=== PATIENT | male | born 1940 | race Caucasian/White ===

== ENCOUNTER 2018-07-19 06:06 | Day surgery (SDC) | payer MEDICARE, OTHER ==
[~2018-07-19] VITALS: Ht 172.7 cm; Wt 97.5 kg
[~2018-07-19 06:06] MED LIST: ASPI81CH; Aspir 8181 MG PO; CALCIT950; CALCITRATE200 MG PO; CALCIUM + D3 E1 EACH PO; CENTRUM COMPLE1 EACH; CINNAMON PLUS1 EACH PO; Cinnamon500 MG; D3 + K2 Dots 11 EACH; FISH OIL 1,2001 EACH PO; FISH1000; LISI20; LISI20 PO; MULTI VITAMIN1 EACH PO; SIMV10; Simvastatin20 MG PO; TAMS.4ER; TAMS.4ER PO; VITAMIN D-32000 UNIT PO
[2018-07-19] MEDS ORDERED: MIRALAX17 GM PO (07:17)
[2018-07-19] MEDS ORDERED: STOOL SOFTENER100 MG PO (07:17)
--- NOTE | 2018-07-19 10:17 | NUR ---
07/19/18 Precious7 Edenilson Bloom LATE ENTRY NARRATIVE PATIENT INTO SDU RECLINER RESTING COMFORTABLY, SPOUSE IS CHAIRSIDE, PATIENT VSS, TOLERATING PO FLUIDS. PATIENT DENIES ANY PAIN OR N/V AT THIS TIME. DISCHARGE INSTRUCTIONS INCLUDING POLAR CARE REVIEWED WITH PATIENT AND SPOUSE, BOTH DENY HAVING QUESTIONS AT THIS TIME. PATIENT STATES "HE DOESN'T LIKE PAIN MEDICATION AND PROBABLY WON'T TAKE IT". WHEN ASKED ASKED ABOUT HIS PAIN THE PATIENT REPORTS 0/10 PAIN AT THIS TIME. NURSE ASSISTED PATIENT VIA WC TO HIS RIDE HOME.
== END 2018-07-19 09:50 | disposition home or self-care (01) ==
LOC: ORSCSDS 06:06
PROVIDERS: Orthopaedic Surgery
PROC: 0SBC4ZZ Excision of Right Knee Joint, Percutaneous Endoscopic Approach (ICD-10-PCS; principal; 2018-07-19 07:30)
DX: S83.241A Other tear of medial meniscus, current injury, right knee, initial encounter (principal); S83.281A Other tear of lateral meniscus, current injury, right knee, initial encounter; M17.11 Unilateral primary osteoarthritis, right knee; I10 Essential (primary) hypertension; R73.03 Prediabetes; Z79.82 Long term (current) use of aspirin; Z79.899 Other long term (current) drug therapy
CPT/HCPCS: J0690; J1100; J2250; J2405; J3010; J7120

== ENCOUNTER 2018-10-19 06:04 | Day surgery (SDC) | payer MEDICARE, OTHER ==
[~2018-10-19] VITALS: Ht 172.7 cm; Wt 94.0 kg
[~2018-10-19 06:04] MED LIST changes: +FURO40 PO; +MIRALAX17 GM PO; +STOOL SOFTENER100 MG PO
--- NOTE | 2018-10-19 10:49 | NUR ---
AIR REMOVED FROM TR BAND PER PROCEDURE. PT TOLERATED WELL. NO BLEEDING NOTED. PT AMBULATED IN RECOVERY ROOM WITHOUT DIFFICULTY. STEADY ON FEET. DRESSED SELF WITH ASSISTANCE OF . IV D/C TIP INTACT AND TR BAND REMOVED. ACCESS SITE DRESSED WITH DOT DRESSING AND WHITE ARM BOARD REAPPLIED. CMS WNL TO HAND AFTER ALL INTERVENTIONS. NO BLEEDING OR SWELLING NOTED. PT DISCHARGED HOME AMBULATORY WITH TO DRIVE HIM.
== END 2018-10-19 10:50 | disposition home or self-care (01) ==
LOC: MHTC 06:04
DX: I25.10 Atherosclerotic heart disease of native coronary artery without angina pectoris (principal); I35.0 Nonrheumatic aortic (valve) stenosis; R00.1 Bradycardia, unspecified; E78.5 Hyperlipidemia, unspecified; I12.9 Hypertensive chronic kidney disease with stage 1 through stage 4 chronic kidney disease, or unspecified chronic kidney disease; N18.9 Chronic kidney disease, unspecified; E66.01 Morbid (severe) obesity due to excess calories; I77.810 Thoracic aortic ectasia; I73.9 Peripheral vascular disease, unspecified; Z79.82 Long term (current) use of aspirin; Z79.899 Other long term (current) drug therapy; Z87.891 Personal history of nicotine dependence
CPT/HCPCS: 93458; 99152; 99153; C1769; C1894; J0360; J1644; J2250; J3010; J7030; Q9967

== ENCOUNTER 2019-01-06 18:26 | Emergency (ER) | payer MEDICARE, OTHER ==
[~2019-01-06] VITALS: Ht 172.7 cm; Wt 91.2 kg
[2019-01-06] MEDS ORDERED: Midodrine HCl5 MG PO (18:53)
[2019-01-06] MEDS ORDERED: CITRACAL + D E1 EACH PO (18:54)
[2019-01-06] MEDS ORDERED: VITAMIN B12 PO (18:56)
[2019-01-06] MEDS ORDERED: Poly-Iron150 MG PO (18:56)
== END 2019-01-06 19:17 | disposition home or self-care (01) ==
LOC: ER 18:26
DX: S51.832A Puncture wound without foreign body of left forearm, initial encounter (principal); I10 Essential (primary) hypertension; E78.00 Pure hypercholesterolemia, unspecified; Z79.899 Other long term (current) drug therapy; Z87.891 Personal history of nicotine dependence; W26.8XXA Contact with other sharp object(s), not elsewhere classified, initial encounter
CPT/HCPCS: 90471; 90714; 99283-25

== ENCOUNTER 2019-01-07 08:59 | Emergency (ER) | payer MEDICARE, OTHER ==
[~2019-01-07] VITALS: Ht 172.7 cm; Wt 89.8 kg
[~2019-01-07 08:59] MED LIST changes: +CITRACAL + D E1 EACH PO; +Midodrine HCl5 MG PO; +Poly-Iron150 MG PO; +VITAMIN B12 PO
== END 2019-01-07 09:22 | disposition home or self-care (01) ==
LOC: ER 08:59
DX: S51.832A Puncture wound without foreign body of left forearm, initial encounter (principal); W22.8XXA Striking against or struck by other objects, initial encounter; Z79.899 Other long term (current) drug therapy; Z79.82 Long term (current) use of aspirin; Z87.891 Personal history of nicotine dependence
CPT/HCPCS: 99282

== ENCOUNTER 2019-03-09 10:58 | Emergency (ER) | payer MEDICARE, OTHER ==
[~2019-03-09] VITALS: Ht 172.7 cm; Wt 98.9 kg
[2019-03-09 12:20] LABS: BASOPHILS ABSOLUTE AUTO 0.04 K/mm3 (0.00-0.23); BASOPHILS PERCENT AUTO 1 % (0-2); EOSINOPHILS ABSOLUTE AUTO 0.04 K/mm3 (0.00-0.68); EOSINOPHILS PERCENT AUTO 1 % (0-6); Hematocrit 39.7 % (37.0-53.0); Hemoglobin 12.9 g/dL (13.5-17.5); IMMATURE GRAN ABSOLUTE AUTO 0.03 K/mm3 (0.00-0.10); IMMATURE GRAN PERCENT AUTO 0 % (0-1); LYMPHOCYTES ABSOLUTE AUTO 1.03 K/mm3 (0.84-5.20); LYMPHOCYTES PERCENT AUTO 12 % (21-46); MONOCYTES ABSOLUTE AUTO 1.05 K/mm3 (0.16-1.47); MONOCYTES PERCENT AUTO 13 % (4-13); Mean Corpuscular HGB 29.8 pg (26.0-34.0); Mean Corpuscular HGB Conc 32.5 g/dL (31.5-36.5); Mean Corpuscular Volume 92 fL (80-100); Mean Platelet Volume 11.4 fL (9.1-12.4); NEUTROPHILS ABSOLUTE AUTO 6.09 K/mm3 (1.96-9.15); NEUTROPHILS PERCENT AUTO 74 % (41-73); Platelet Count 146 K/mm3 (150-400); RDW Coefficient Variation 13.5 % (11.7-14.2); Red Blood Cell Count 4.33 M/mm3 (4.30-5.90); White Blood Cell Count 8.28 K/mm3 (4.00-11.30)
[2019-03-09 13:17] LABS: Albumin, Blood 3.2 g/dL (3.4-5.0); Albumin/Globulin Ratio 0.9 (0.8-1.8); Bilirubin, Total 0.5 mg/dL (0.1-1.0); Bun/Creatinine Ratio 16.8 (12.0-20.0); Calcium, Blood 8.5 mg/dL (8.5-10.1); Creatinine, Blood 1.43 mg/dL (0.60-1.20); Globulin, Blood 3.6 g/dL (2.2-4.0); Potassium, Blood 4.6 mmol/L (3.5-5.5); Total Protein, Blood 6.8 g/dL (6.4-8.2)
== END 2019-03-09 13:05 | disposition home or self-care (01) ==
LOC: ER 10:58
PROVIDERS: Emergency Medicine
DX: L03.116 Cellulitis of left lower limb (principal); M79.81 Nontraumatic hematoma of soft tissue; Z79.899 Other long term (current) drug therapy; Z79.82 Long term (current) use of aspirin; I10 Essential (primary) hypertension; E78.00 Pure hypercholesterolemia, unspecified
CPT/HCPCS: 10140; 36415; 80053; 85025; 87070; 87075; 87205; 99283-25

== ENCOUNTER 2019-11-08 09:59 | Emergency (ER) | payer MEDICARE, OTHER ==
[~2019-11-08] VITALS: Ht 172.7 cm; Wt 93.0 kg
[2019-11-08] MEDS ORDERED: LISINOPRIL2.5 MG PO (10:10)
[2019-11-08] MEDS ORDERED: COLACE100 MG PO (10:11)
[2019-11-08] MEDS ORDERED: Norco 5-325 Ta1 EACH PO (12:23)
== END 2019-11-08 12:30 | disposition home or self-care (01) ==
LOC: ER 09:59
DX: S43.015A Anterior dislocation of left humerus, initial encounter (principal); I10 Essential (primary) hypertension; E78.00 Pure hypercholesterolemia, unspecified; Z79.82 Long term (current) use of aspirin; Z79.899 Other long term (current) drug therapy; W01.0XXA Fall on same level from slipping, tripping and stumbling without subsequent striking against object, initial encounter
CPT/HCPCS: 23650; 36415; 73020; 73030; 96374-59; 96375-59; 99283-25; J1170; J2405; J3010

== ENCOUNTER → 2021-04-30 | Outpatient (CLI) | payer MEDICARE, OTHER ==
[~2021-04-30] MED LIST changes: +COLACE100 MG PO; +LISINOPRIL2.5 MG PO; +Norco 5-325 Ta1 EACH PO
== END | disposition home or self-care (01) ==
LOC: LAB SHORT 11:23 → LAB 11:23
DX: D48.5 Neoplasm of uncertain behavior of skin (principal)
CPT/HCPCS: 88304; 88312

== ENCOUNTER → 2021-10-08 | Outpatient (CLI) | payer MEDICARE, OTHER ==
[2021-10-08 17:58] LABS: Protein, Urine Random 70.4 mg/dL (0.0-11.9); Protein/Creat Ratio, Ur Random 0.5
== END | disposition home or self-care (01) ==
LOC: LAB SHORT 13:27
PROVIDERS: Internal Medicine Nephrology
DX: N18.31 Chronic kidney disease, stage 3a (principal); R80.9 Proteinuria, unspecified
CPT/HCPCS: 82570; 84156

== ENCOUNTER 2021-11-25 08:45 | Day surgery (SDC) | payer MEDICARE, OTHER ==
[~2021-11-25] VITALS: Ht 172.7 cm; Wt 102.1 kg
[~2021-11-25 08:45] MED LIST changes: +FISH OIL PO; +GLUC500 PO; +VITAMIN D325 MC3 PO
--- NOTE | 2021-11-25 10:00 | NUR ---
Ambulatory in [facility] warming gown applied. Surgical site prepped with 2% Chlorhexidine cloth wipe. History, Chart, Medications and Allergies reviewed before start of procedure.Lungs clear T/O to Auscultation.Adama Paws warming gown applied. Patient confirms NPO status and agrees with scheduled surgery. Pre-Op teaching done. Pt verbalizes understanding. Patient States Post-Procedure ride home has been arranged. Patient reports completing Chlorhexadine shower X2 prior to admission to hospital.
--- NOTE | 2021-11-25 10:58 | NUR ---
11/25/21 1058 Natacha Blum PATIENT ALSO RECEIVED 1GM OF VANCO IN DAYSURGERY PRIOR TO ARRIVING IN THE OR.
--- NOTE | 2021-11-25 14:15 | NUR ---
pt arrived to unit from pacu. 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 pt denies pain but reports baseline numbness and tingling to feet. able to move feet and legs well. tolerating po and drinking water. no urge to void yet. will bladder scan. dressing cdi.
--- NOTE | 2021-11-25 17:00 | NUR ---
SHIFT SUMMARY S/P R TKA. PT WORKED WITH THERAPY, TOLERATED WELL. REPORTS PAIN AT 110 AFTER PT. MEDICATION PER EMAR. TOLERATING PO WELL, STILL ATTEMPTING TO VOID AT THIS TIME. WILL BLADDER SCAN AGAIN AND STRAIGHT CATH IF NEEDED. PT AMBULATING FREQUENTLY. PLAN IS TO WORK WITH THERAPY TOMORROW AND DISCHARGE.
--- NOTE | 2021-11-25 18:38 | NUR ---
pt unable to void after 2 tries. bladder scan for over 500, straight cathed per protocol. pt tolerating well
--- NOTE | 2021-11-26 05:44 | NUR ---
SHIFT SUMMARY A/O X4. POD1 R TKA- SAVI WRAP IN PLACE C/D/I. AMBULATED WELL W/ FWW, GB, AND SBA. PT REPORTS NO PAIN THROUGHOUT SHIFT. VOIDING WELL AND TOLERATING PO INTAKE. PLEASANT AND COOPERATIVE WITH CARE, VITAL SIGNS STABLE. WILL CONTINUE TO MONITOR AND REPORT TO ONCOMING RN.
[2021-11-26 05:59] LABS: BASOPHILS ABSOLUTE AUTO 0.01 K/mm3 (0.00-0.23); BASOPHILS PERCENT AUTO 0 % (0-2); EOSINOPHILS PERCENT AUTO 0 % (0-6); Hematocrit 34.6 % (37.0-53.0); Hemoglobin 11.6 g/dL (13.5-17.5); IMMATURE GRAN ABSOLUTE AUTO 0.03 K/mm3 (0.00-0.10); IMMATURE GRAN PERCENT AUTO 0 % (0-1); LYMPHOCYTES ABSOLUTE AUTO 0.57 K/mm3 (0.84-5.20); LYMPHOCYTES PERCENT AUTO 7 % (21-46); MONOCYTES ABSOLUTE AUTO 0.85 K/mm3 (0.16-1.47); MONOCYTES PERCENT AUTO 11 % (4-13); Mean Corpuscular HGB 30.9 pg (26.0-34.0); Mean Corpuscular HGB Conc 33.5 g/dL (31.5-36.5); Mean Corpuscular Volume 92 fL (80-100); Mean Platelet Volume 10.7 fL (9.1-12.4); NEUTROPHILS ABSOLUTE AUTO 6.34 K/mm3 (1.96-9.15); NEUTROPHILS PERCENT AUTO 81 % (41-73); Platelet Count 139 K/mm3 (150-400); RDW Standard Deviation 40.6 fL (35.1-46.3); Red Blood Cell Count 3.75 M/mm3 (4.30-5.90)
[2021-11-26 06:25] LABS: Bun/Creatinine Ratio 18.2 (12.0-20.0); Calcium, Blood 8.3 mg/dL (8.5-10.1); Creatinine, Blood 1.37 mg/dL (0.60-1.20); Magnesium, Blood 2.3 mg/dL (1.6-2.4); Potassium, Blood 4.9 mmol/L (3.5-5.5)
[2021-11-26] MEDS ORDERED: OXYC5 PO (10:32)
[2021-11-26] MEDS ORDERED: SULTRIDS PO (10:32)
[2021-11-26] MEDS ORDERED: ASPI81CH PO (10:32)
[2021-11-26] MEDS ORDERED: PROM25 PO (10:33)
--- NOTE | 2021-11-26 11:15 | NUR ---
DISCHARGE PATIENT CLEARED THERAPY THIS AM. AMBULATING WELL W/ FWW&GB. PATIENT REPORTS PAIN TO BE TOLERABLE W/ TYLENOL & TORADOL. EATING, DRINKING, & VOIDING WELL. NO NAUSEA/VOMITTING. DISCUSSED DISCHARGE INSTRUCTIONS. SENT AQUACEL DRESSINGS, POLAR PACK, & DC INSTRUCTINS W/ PATIENT. ESCORTED OUT VIA W/C.
== END 2021-11-26 11:15 | disposition home or self-care (01) ==
LOC: ORSCMMR 08:45 → ORD 10:45 → SURS 13:03 → ORSCMMR 11-26 11:15
PROVIDERS: Orthopaedic Surgery
PROC: 0SRC0J9 Replacement of Right Knee Joint with Synthetic Substitute, Cemented, Open Approach (ICD-10-PCS; principal; 2021-11-25 10:45)
PROC: 8E0YXBZ Computer Assisted Procedure of Lower Extremity (ICD-10-PCS; principal; 2021-11-25 10:45)
DX: M17.11 Unilateral primary osteoarthritis, right knee (principal); M21.161 Varus deformity, not elsewhere classified, right knee; E78.00 Pure hypercholesterolemia, unspecified; K21.9 Gastro-esophageal reflux disease without esophagitis; I13.0 Hypertensive heart and chronic kidney disease with heart failure and stage 1 through stage 4 chronic kidney disease, or unspecified chronic kidney disease; I50.9 Heart failure, unspecified; N18.9 Chronic kidney disease, unspecified; Z87.891 Personal history of nicotine dependence
CPT/HCPCS: 36415; 73560-RT; 80048; 83735; 85025; 97110; 97116; 97162; A9270; C1713; C1776; J0171; J0690; J0735; J1100; J1885; J2250; J2370; J2405; J2704; J2795; J3010; J3370; J7050; J7060; J7120

== ENCOUNTER 2022-02-11 11:02 | Day surgery (SDC) | payer MEDICARE, OTHER ==
[~2022-02-11] VITALS: Ht 172.7 cm; Wt 98.6 kg
[~2022-02-11 11:02] MED LIST changes: +ASPI81CH PO; +OXYC5 PO; +PROM25 PO; +SULTRIDS PO
--- NOTE | 2022-02-11 11:36 | NUR ---
REPORT TO STEVE GUTIERREZ
--- NOTE | 2022-02-11 13:49 | NUR ---
Discharge instructions reviewed with patient. Patient verbalizes understanding. Copy given to patient to take home. Patient States Post-Procedure ride home has been arranged. Discharged via wheelchair to private car for ride home.
--- NOTE | 2022-02-13 06:38 | NUR ---
02/13/22 0637 Oscar Vogt HISTORY, CHART, MEDICATIONS AND ALLERGIES REVIEWED BEFORE START OF PROCEDURE. PATIENT CONFIRMS NPO STATUS AND AGREES WITH SCHEDULED PROCEDURE. 3-LEAD EKG REVIEWED WITH PHYSICIAN PRIOR TO START OF PROCEDURE. MONITOR INTACT WITH CONTINUOUS PULSE OXIMETRY,CAPNOGRAPHY, 3-LEAD EKG, INTERMITTENT BP. SUPPLEMENTAL O2 TO BE TITRATED THROUGHOUT PROCEDURE TO MAINTAIN O2 SATURATION ABOVE 90%. PATIENT DETERMINED TO BE ASA APPROPRIATE FOR PROPOFOL SEDATION PRIOR TO START OF PROCEDURE BY DR. CHAO
== END 2022-02-11 13:59 | disposition home or self-care (01) ==
LOC: ORSCMMR 11:02 → ORSCSDS 12:15 → ORSCMMR 12:15 → ORD 12:15 → ORSCMMR 13:59
PROVIDERS: Internal Medicine Gastroenterology
PROC: 0DJD8ZZ Inspection of Lower Intestinal Tract, Via Natural or Artificial Opening Endoscopic (ICD-10-PCS; principal; 2022-02-11 12:15)
DX: Z12.11 Encounter for screening for malignant neoplasm of colon (principal); Z86.010 Personal history of colon polyps; Z80.0 Family history of malignant neoplasm of digestive organs; I73.9 Peripheral vascular disease, unspecified; I25.10 Atherosclerotic heart disease of native coronary artery without angina pectoris; Z86.73 Personal history of transient ischemic attack (TIA), and cerebral infarction without residual deficits; R01.1 Cardiac murmur, unspecified; R00.1 Bradycardia, unspecified; Z79.82 Long term (current) use of aspirin; Z79.899 Other long term (current) drug therapy; Z87.891 Personal history of nicotine dependence
CPT/HCPCS: J2704; J7120

== ENCOUNTER → 2022-04-29 | Outpatient (CLI) | payer MEDICARE, OTHER | END | disposition home or self-care (01) | LOC: LAB SHORT 11:28 → LAB 11:28 | DX: C44.629 Squamous cell carcinoma of skin of left upper limb, including shoulder (principal) | CPT/HCPCS: 88305 ==

== ENCOUNTER → 2022-05-26 | Outpatient (CLI) | payer MEDICARE, OTHER | LOC: PLD 12:34 → LAB SHORT 12:34 | DX: L57.8 Other skin changes due to chronic exposure to nonionizing radiation (principal) | CPT/HCPCS: 88305 ==

== ENCOUNTER 2022-08-13 07:46 | Day surgery (SDC) | payer MEDICARE, OTHER ==
[~2022-08-13] VITALS: Ht 172.7 cm; Wt 103.5 kg
--- NOTE | 2022-08-13 08:20 | NUR ---
History, Chart, Medications and Allergies reviewed before start of procedure.LUNGS CLEAR PRE OP TEACHING DONE
--- NOTE | 2022-08-13 10:17 | NUR ---
08/13/22 Precious7 Natacha Blum PATIENT RECEIVED VANCO 1GM IN THE PREOP SETTING PRIOR TO ARRIVING IN THE OR.
--- NOTE | 2022-08-14 04:22 | NUR ---
SUMMARY POD1 R GUTIERREZ POSTERIOR APPROACH. X3 BULKY DRESSINGS WITH PRESSURE TAPE. C/D/I. POLAR PACK TO HIP T/O NIGHT. UP AMBULATING THROUGH THE NIGHT IN [place], 1 ASSIST GB, FWW. VOIDING EASILY. TOLERATING PO INTAKE. MEDICATED FOR PAIN PER EMAR. PLAN TO WORK WITH THERAPY IN AM AND AWAIT DISCHARGE INSTRUCTIONS.VSS, CALL LIGHT IN REACH.
[2022-08-14 04:45] LABS: BASOPHILS ABSOLUTE AUTO 0.02 K/mm3 (0.00-0.23); BASOPHILS PERCENT AUTO 0 % (0-2); EOSINOPHILS PERCENT AUTO 0 % (0-6); Hemoglobin 11.4 g/dL (13.5-17.5); IMMATURE GRAN ABSOLUTE AUTO 0.03 K/mm3 (0.00-0.10); IMMATURE GRAN PERCENT AUTO 0 % (0-1); LYMPHOCYTES ABSOLUTE AUTO 0.43 K/mm3 (0.84-5.20); LYMPHOCYTES PERCENT AUTO 5 % (21-46); MONOCYTES PERCENT AUTO 11 % (4-13); Mean Corpuscular HGB 30.3 pg (26.0-34.0); Mean Corpuscular HGB Conc 33.5 g/dL (31.5-36.5); Mean Corpuscular Volume 90 fL (80-100); Mean Platelet Volume 11.3 fL (9.1-12.4); NEUTROPHILS ABSOLUTE AUTO 7.18 K/mm3 (1.96-9.15); NEUTROPHILS PERCENT AUTO 84 % (41-73); Platelet Count 149 K/mm3 (150-400); RDW Coefficient Variation 11.9 % (11.7-14.2); RDW Standard Deviation 39.7 fL (35.1-46.3); Red Blood Cell Count 3.76 M/mm3 (4.30-5.90); White Blood Cell Count 8.56 K/mm3 (4.00-11.30)
[2022-08-14 05:10] LABS: Bun/Creatinine Ratio 15.9 (12.0-20.0); Calcium, Blood 7.8 mg/dL (8.5-10.1); Creatinine, Blood 1.51 mg/dL (0.60-1.20); Magnesium, Blood 2.1 mg/dL (1.6-2.4); Potassium, Blood 4.7 mmol/L (3.5-5.5)
[2022-08-14] MEDS ORDERED: OXYC5 PO (07:59)
[2022-08-14] MEDS ORDERED: PROM25 PO (08:00)
[2022-08-14] MEDS ORDERED: BACTRIM DS TAB1 EAC6 PO (08:01)
--- NOTE | 2022-08-14 10:06 | NUR ---
DISCHARGE PATIENT CLEARED THERAPY WELL. EATING, DRINKING, & VOIDING W/O DIFFICULTY. AMBULATING WELL SBA W/ FWW & GB. PAIN REPORTED TO BE TOLERABLE PER PT, MANAGED PER EMAR. DISCUSSED DISCHRGE INSTRUCTIONS WITH PATIENT, SENT WITH PATIENT. SENT AQUACE DRESSINGS & POLAR PACK WITH PATIENT. PATIENT AWAITING RIDE CURRENTLY. WILL ESCORT OUT VIA W/C.
--- NOTE | 2022-08-14 10:38 | NUR ---
Pt. is awake in bed and welcomes my visit. Pt. 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 Re-establish rapport and facilitate a life review. Consider matters of ying and belief. Pt. displays evidence of confidence in his recovery and a stong ying. Pt. verbalizes that he is awaiting discharge. Pts. son arrives. Prayed with Pt. Pt. and son verbalized gratitude fo rthe spiritual care visit.
--- NOTE | 2022-08-14 10:48 | NUR ---
ESCORTED OUT VIA W/C
== END 2022-08-14 10:48 | disposition home or self-care (01) ==
LOC: ORSCMMR 07:46 → SURS 12:36 → ORD 13:00 → ORSCMMR 08-14 10:48 → ORD 09-10 10:45
PROVIDERS: Orthopaedic Surgery
PROC: 0SR90JA Replacement of Right Hip Joint with Synthetic Substitute, Uncemented, Open Approach (ICD-10-PCS; principal; 2022-08-13 09:30)
DX: M16.12 Unilateral primary osteoarthritis, left hip (principal); I10 Essential (primary) hypertension; G47.33 Obstructive sleep apnea (adult) (pediatric); I25.10 Atherosclerotic heart disease of native coronary artery without angina pectoris; E78.5 Hyperlipidemia, unspecified; N40.0 Benign prostatic hyperplasia without lower urinary tract symptoms; G62.9 Polyneuropathy, unspecified; Z79.899 Other long term (current) drug therapy; Z79.82 Long term (current) use of aspirin
CPT/HCPCS: 36415; 72170; 80048; 83735; 85025; 97116; 97162; 97165; 97530; 97535; A9270; C1713; C1776; J0171; J0690; J0735; J1100; J1885; J2250; J2370; J2405; J2704; J2795; J3010; J3370; J7120

== ENCOUNTER 2024-06-15 23:15 | Emergency (ER) | payer MEDICARE, OTHER ==
[~2024-06-15] VITALS: Ht 172.7 cm; Wt 97.1 kg
[~2024-06-15 23:15] MED LIST changes: +BACTRIM DS TAB1 EAC6 PO; +GLUCHON PO; +HYDCHL25 PO; +ZESTRIL40 M1 PO
[2024-06-16 00:25] LABS: Hematocrit 38.3 % (37.0-53.0); Hemoglobin 12.9 g/dL (13.5-17.5); Mean Corpuscular HGB 31.4 pg (26.0-34.0); Mean Corpuscular HGB Conc 33.7 g/dL (31.5-36.5); Mean Corpuscular Volume 93 fL (80-100); Mean Platelet Volume 10.3 fL (9.1-12.4); Platelet Count 154 K/mm3 (150-400); RDW Standard Deviation 41.5 fL (35.1-46.3); Red Blood Cell Count 4.11 M/mm3 (4.30-5.90); White Blood Cell Count 4.61 K/mm3 (4.00-11.30)
[2024-06-16 00:50] LABS: Albumin, Blood 3.4 g/dL (3.4-5.0); Albumin/Globulin Ratio 0.8 (0.8-1.8); Bilirubin, Total 0.2 mg/dL (0.1-1.0); Bun/Creatinine Ratio 19.9 (12.0-20.0); Calcium, Blood 8.9 mg/dL (8.5-10.1); Creatinine, Blood 1.91 mg/dL (0.60-1.20); Potassium, Blood 5.3 mmol/L (3.5-5.5); Total Protein, Blood 7.4 g/dL (6.4-8.2)
[2024-06-16 01:08] LABS: BASOPHILS PERCENT MAN 0 % (0-2); EOSINOPHILS ABSOLUTE MAN 0.23 K/mm3 (0.00-0.68); EOSINOPHILS PERCENT MAN 5 % (0-6); LYMPHOCYTES % ATYPICAL MANUAL 3 % (0-0); LYMPHOCYTES ABSOLUTE MAN 1.93 K/mm3 (0.84-5.20); LYMPHOCYTES PERCENT MAN 39 % (21-46); MONOCYTES ABSOLUTE MAN 0.32 K/mm3 (0.16-1.47); MONOCYTES PERCENT MAN 7 % (4-13); NEUTROPHILS ABSOLUTE MAN 2.12 K/mm3 (1.96-9.15); SEG NEUTROPHILS PERCENT MAN 46 % (41-73); TOTAL CELLS COUNTED 100
[2024-06-16 04:29] LABS: Influenza A, PCR NEGATIVE (NEGATIVE); Influenza B, PCR NEGATIVE (NEGATIVE); Resp Syncytial Virus, PCR NEGATIVE (NEGATIVE); SARS-Cov-2 (COVID-19) PCR, MMC NEGATIVE (NEGATIVE)
[2024-06-16] MEDS ORDERED: Azithromycin 250 MG Tab PO ONE (04:35)
[2024-06-16] MEDS ORDERED: CefTRIAXone Sodium 1,000 MG in NS 100 ML IV ONE (04:35)
[2024-06-16] MEDS ORDERED: AMOCLA875 PO (06:08)
[2024-06-16] MEDS ORDERED: AZIT250 PO (06:08)
[2024-06-16 06:30] VITALS: BP 165/58
== END 2024-06-16 06:35 | disposition home or self-care (01) ==
LOC: ER 23:15
PROVIDERS: Student in an Organized Health Care Education/Training Program
DX: R06.02 Shortness of breath (principal); E78.00 Pure hypercholesterolemia, unspecified; I10 Essential (primary) hypertension; Z87.891 Personal history of nicotine dependence; Z79.82 Long term (current) use of aspirin; Z79.899 Other long term (current) drug therapy
CPT/HCPCS: 0241U; 71046; 71260; 80053; 84484; 85025; 85379; 93005; 93010; 96365-59; 99284; A9270; J0696; Q9967